=== PATIENT | male | born 1980 ===

== ENCOUNTER 2017-06-11 18:42 | Emergency (ER) | payer MEDICAID, OTHER ==
[2017-06-11 18:42] VITALS: BMI 25.0
--- NOTE | 2017-06-11 19:28 | ED PDOC ---
Upper Extremity Pain/Injury Time Seen by Provider: 06/11/17 19:14 Chief Complaint (Nursing): Finger,Hand,&Wrist Chief Complaint (Provider): right arm pain History Per: Patient History/Exam Limitations: no limitations Onset/Duration Of Symptoms: Days (1 week) Current Symptoms Are (Timing): Still Present Hands/Wrist (Pic): 1 - Tenderness, Swelling, Pain Worse W/Movement 2 - Tenderness, Pain Worse W/Movement Exacerbating Factor(s): Strenuous Use Of Affected Area Additional History Per: Patient Additional Complaint(s): 37 y/o male presents with right arm/wrist pain x 1 week. 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 Patient states pain is worsened by movement, and feels area to be swollen. Pain also noted to right wrist with certain movements. Patient iced area once, and has not taken any medication for pain thus far. Denies numbness/weakness right upper extremity. Past Medical History Reviewed: Historical Data, Nursing Documentation, Vital Signs Vital Signs: Last Vital Signs Temp 98.5 F 06/11/17 19:01 Pulse 78 06/11/17 19:01 Resp 16 06/11/17 19:01 BP 106/66 06/11/17 19:01 Pulse Ox 100 06/11/17 19:01 - Medical History PMH: Kidney Stones, Chronic Kidney Disease Denies: Diabetes, Hepatitis, HIV, HTN, Seizures, Sexually Transmitted Disease - Family History Family History: States: Unknown Family Hx - Immunization History Hx Tetanus Toxoid Vaccination: No Hx Influenza Vaccination: No Hx Pneumococcal Vaccination: No - Home Medications Home Medications: Ambulatory Orders Medication Instructions Recorded Docusate Sodium [Colace] 100 mg PO TID #30 capsule 10/16/16 Hydrocortisone [Anusol-HC] 25 mg RC BID #20 sup 10/16/16 Ibuprofen [Motrin Tab] 1 tab PO Q6 PRN #20 tab 06/11/17 - Allergies Allergies/Adverse Reactions: Allergies Allergy/AdvReac Type Severity Reaction Status Date / Time No Known Allergies Allergy Verified 06/11/17 19:01 Review of Systems ROS Statement: Except As Marked, All Systems Reviewed And Found Negative Musculoskeletal: Positive for: Arm Pain (right forearm, right wrist) Physical Exam - Reviewed Nursing Documentation Reviewed: Yes Vital Signs Reviewed: Yes - Physical Exam Appears: Positive for: Well, Non-toxic, No Acute Distress Head Exam: Positive for: ATRAUMATIC, NORMAL INSPECTION, NORMOCEPHALIC Pulses-Radial (L): 2+ Pulses-Radial (R): 2+ Extremity: Positive for: Normal ROM (pain distal radial forearm with ulnar deviation right wrist. pain radial aspect right wrist with flexion; Distal NV, motor intact), Tenderness (distal forearm radial aspect tender to palpate with localized swelling. No eryhema, temp change noted) - ECG O2 Sat by Pulse Oximetry: 100 - Other Rad xray right wrist X-Ray: Viewed By Me X-Ray Interpretation: no acute findings xray right forearm X-Ray: Viewed By Me, Read By Radiologist X-Ray Interpretation: no acute findings - Progress ED Course And Treament: xray's, ibuprofen Patient educated on findings, wrist immobilizer given for comfort. Advised RICE. Rx ibuprofen given. Follow up ortho for persistent symptoms. Return to ED for worsening/concerning symptoms. Disposition - Clinical Impression Clinical Impression: Injury of forearm and wrist - Patient ED Disposition Is Patient to be Admitted: No Counseled Patient/Family Regarding: Studies Performed, Diagnosis, Need For Followup, Rx Given - Disposition Referrals: Jason Courtney III, MD [Staff Provider] - Disposition: Routine/Home Disposition Time: 21:19 Condition: IMPROVED Prescriptions: Ibuprofen [Motrin Tab] 1 tab PO Q6 PRN #20 tab PRN Reason: Pain, Moderate (4-7) Instructions: Common Wrist Injuries Forms: [employer] ([place])
--- NOTE | 2017-06-11 21:00 | RAD ---
EXAM: XR Right Forearm, 2 Views CLINICAL HISTORY: 37 years old, male; Injury or trauma; Fall; Initial encounter; Blunt trauma (contusions or hematomas; Arm, lower; Right; Additional info: Injury, distal pain TECHNIQUE: Frontal and lateral views of the right forearm. COMPARISON: No relevant prior studies available. FINDINGS: Bones/joints: No acute fracture. 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 No dislocation. Soft tissues: Unremarkable. IMPRESSION: 1. No acute fracture. 2. Incidental/non-acute findings are described above.
[2017-06-11 21:43] VITALS: BP 111/76; PULSE 81; RESP 17; TEMP 98.3; O2SAT 99
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
== END 2017-06-11 21:36 | disposition home or self-care (01) ==
LOC: H.ER 18:42
DX: S69.91XA Unspecified injury of right wrist, hand and finger(s), initial encounter (principal); X50.3XXA Overexertion from repetitive movements, initial encounter; Y99.0 Civilian activity done for income or pay

== ENCOUNTER 2017-06-30 19:51 | Emergency (ER) | payer MEDICAID ==
[2017-06-30 19:51] VITALS: BMI 25.0
[2017-06-30 20:03] VITALS: BP 150/95; PULSE 86; RESP 18; TEMP 99.2; O2SAT 97
--- NOTE | 2017-06-30 20:44 | ED PDOC ---
HPI: General Adult Time Seen by Provider: 06/30/17 20:17 Chief Complaint (Nursing): Dizziness/Lightheaded Chief Complaint (Provider): Tired History Per: Patient History/Exam Limitations: no limitations Have you had recent travel within the past 21 days to any of the following countries: [place], [place], [place] or [place]?: No Current Symptoms Are (Timing): Better Additional Complaint(s): 37 yo male with no medical problems presents with feeling tired the last few hours. PT states the worked 60 hours this week and instead of sleeping he wanted to take a side job for extra money. Pt states after that he went to the gym for 4 hours and went to the store. Pt states in the store he felt so tired. Pt denies SI/HI. Pt reports smoking PCP 2times per week and smoking marijuana the other days. Past Medical History Reviewed: Historical Data, Nursing Documentation, Vital Signs Vital Signs: Last Vital Signs Temp 99.2 F 06/30/17 19:59 Pulse 86 06/30/17 19:59 Resp 18 06/30/17 19:59 BP 150/95 H 06/30/17 19:59 Pulse Ox 97 06/30/17 19:59 - Medical History PMH: Kidney Stones Denies: Diabetes, Hepatitis, HIV, HTN, Chronic Kidney Disease, Seizures, Sexually Transmitted Disease - Surgical History Surgical History: No Surg Hx - Family History Family History: States: Unknown Family Hx - Living Arrangements Living Arrangements: With Family - Social History Current smoker - smoking cessation education provided: Yes Alcohol: Occasional Drugs: Cannabis, Other - Immunization History Hx Tetanus Toxoid Vaccination: No Hx Influenza Vaccination: No Hx Pneumococcal Vaccination: No - Home Medications Home Medications: Ambulatory Orders Medication Instructions Recorded Docusate Sodium [Colace] 100 mg PO TID #30 capsule 10/16/16 Hydrocortisone [Anusol-HC] 25 mg RC BID #20 sup 10/16/16 Ibuprofen [Motrin Tab] 1 tab PO Q6 PRN #20 tab 06/11/17 - Allergies Allergies/Adverse Reactions: Allergies Allergy/AdvReac Type Severity Reaction Status Date / Time No Known Allergies Allergy Verified 06/11/17 19:01 Review of Systems ROS Statement: Except As Marked, All Systems Reviewed And Found Negative Neurological: Positive for: Weakness Physical Exam - Reviewed Nursing Documentation Reviewed: Yes Vital Signs Reviewed: Yes - Physical Exam Appears: Positive for: Well, Non-toxic, No Acute Distress Head Exam: Positive for: ATRAUMATIC, NORMAL INSPECTION, NORMOCEPHALIC Skin: Positive for: Normal Color, Warm, DRY Eye Exam: Positive for: EOMI, Normal appearance, PERRL ENT: Positive for: Normal ENT Inspection Neck: Positive for: Normal, Painless ROM Cardiovascular/Chest: Positive for: Regular Rate, Rhythm Respiratory: Positive for: CNT, Normal Breath Sounds Gastrointestinal/Abdominal: Positive for: Normal Exam, Bowel Sounds, Soft. Negative for: Tenderness Back: Positive for: Normal Inspection Extremity: Positive for: Normal ROM Neurologic/Psych: Positive for: Alert, Oriented - ECG O2 Sat by Pulse Oximetry: 97 Medical Decision Making Medical Decision Making: Discussed taking vitamins, sleeping 8 hours a night, stop drug use and eating healthy. Pt than asks for medications to keep him up during the days "like a stimulant". After I tell him he would need to see his PMD/psychiatrist patient than asks if he could have multiple Rx for pain medication, sleeping pills or "special vitamins". Disposition - Clinical Impression Clinical Impression: Tired - Patient ED Disposition Is Patient to be Admitted: No Counseled Patient/Family Regarding: Diagnosis, Need For Followup - Disposition Disposition: Routine/Home Disposition Time: 20:42 Condition: GOOD Instructions: Fatigue (DC)
== END 2017-06-30 20:53 | disposition home or self-care (01) ==
LOC: H.ER 19:51
DX: R53.83 Other fatigue (principal); Z87.442 Personal history of urinary calculi; Z72.0 Tobacco use

== ENCOUNTER 2017-07-07 21:05 | Emergency (ER) | payer MEDICAID ==
[2017-07-07 21:05] VITALS: BMI 25.0
[2017-07-07 21:41] VITALS: BP 128/83; PULSE 98; RESP 18; TEMP 98.8; O2SAT 100
[2017-07-07] MEDS ORDERED: Albuterol-Ipratrop 3 mg / 0.5 (3 ml) UD INH STA (22:05)
[2017-07-07] MEDS ORDERED: Albuterol-Ipratrop 3 mg / 0.5 (3 ml) UD ONE (22:13)
[2017-07-07 22:35] LABS: BASO # 0.1 K/uL (0.0-0.2); BASO % 0.9 % (0.0-2.0); EOS # 0.2 K/uL (0.0-0.7); EOS % 2.3 % (0.0-4.0); HEMOGLOBIN 15.6 g/dL (12.0-18.0); LYMPH # 2.4 K/uL (1.0-4.3); LYMPH % 32.3 % (20.0-40.0); MEAN CORPUSCULAR HEMOGLOBIN 32.1 pg (27.0-31.0); MEAN CORPUSCULAR HGB CONC 34.6 g/dL (33.0-37.0); MEAN PLATELET VOLUME 8.8 fl (7.2-11.7); MONO # 0.5 K/uL (0.0-0.8); MONO % 6.7 % (0.0-10.0); NEUT # 4.2 K/uL (1.8-7.0); NEUT % 57.8 % (50.0-75.0); NRBC % 0.1 % (0.0-0.0); RBC 4.86 Mil/uL (4.40-5.90); RED CELL DISTRIBUTION WIDTH 12.9 % (11.5-14.5); WHITE BLOOD COUNT 7.3 K/uL (4.8-10.8)
[2017-07-07 22:44] LABS: BLOOD UREA NITROGEN 15 mg/dl (9-20); CALCIUM 9.5 mg/dL (8.4-10.2); GFR AFRICAN-AMERICAN > 60; GFR NON-AFRICAN AMERICAN > 60
--- NOTE | 2017-07-07 22:58 | ED PDOC ---
HPI: SOB/CHF/COPD Time Seen by Provider: 07/07/17 21:43 Chief Complaint (Nursing): Respiratory Distress Chief Complaint (Provider): Cough and Shortness of Breath History Per: Patient History/Exam Limitations: no limitations Onset/Duration Of Symptoms: Days Current Symptoms Are (Timing): Still Present Associated Symptoms: denies: Chest Pain Additional Complaint(s): 37 year old male presents to the emergency department to be evaluated for cough and shortness of breath. Patient also notes some dryness in his throat as well as chest tightness. Denies nausea, vomiting, diaphoresis. 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 Past Medical History Reviewed: Historical Data, Nursing Documentation, Vital Signs Vital Signs: Last Vital Signs Temp 98.8 F 07/07/17 21:36 Pulse 98 H 07/07/17 21:36 Resp 18 07/07/17 21:36 BP 128/83 07/07/17 21:36 Pulse Ox 100 07/07/17 23:41 - Medical History PMH: Kidney Stones Denies: Diabetes, Hepatitis, HIV, HTN, Chronic Kidney Disease, Seizures, Sexually Transmitted Disease - Surgical History Surgical History: No Surg Hx - Family History Family History: States: Unknown Family Hx - Social History Current smoker - smoking cessation education provided: Yes (2 cigarettes daily) Ex-Smoker (has not smoked in the last 12 months): Yes Drugs: Other (PCP) - Immunization History Hx Tetanus Toxoid Vaccination: No Hx Influenza Vaccination: No Hx Pneumococcal Vaccination: No - Home Medications Home Medications: Ambulatory Orders Medication Instructions Recorded Docusate Sodium [Colace] 100 mg PO TID #30 capsule 10/16/16 Hydrocortisone [Anusol-HC] 25 mg RC BID #20 sup 10/16/16 Ibuprofen [Motrin Tab] 1 tab PO Q6 PRN #20 tab 06/11/17 - Allergies Allergies/Adverse Reactions: Allergies Allergy/AdvReac Type Severity Reaction Status Date / Time No Known Allergies Allergy Verified 06/11/17 19:01 Review of Systems ROS Statement: Except As Marked, All Systems Reviewed And Found Negative Cardiovascular: Negative for: Chest Pain (Chest tightness) Respiratory: Positive for: Cough, Shortness of Breath Gastrointestinal: Negative for: Nausea, Vomiting Physical Exam - Reviewed Nursing Documentation Reviewed: Yes Vital Signs Reviewed: Yes - Physical Exam Appears: Positive for: Non-toxic, No Acute Distress Head Exam: Positive for: ATRAUMATIC, NORMAL INSPECTION, NORMOCEPHALIC Skin: Positive for: Normal Color, Warm, Dry. Negative for: Rash Eye Exam: Positive for: Normal appearance, PERRL. Negative for: EOMI, Nystagmus ENT: Positive for: Normal ENT Inspection. Negative for: Nasal Congestion, Tonsillar Exudate, Tonsillar Swelling Neck: Positive for: Normal, Painless ROM, Supple Cardiovascular/Chest: Positive for: Regular Rate, Rhythm, Chest Non Tender. Negative for: Tachycardia Respiratory: Positive for: Normal Breath Sounds. Negative for: Rales, Rhonchi, Wheezing, Respiratory Distress Gastrointestinal/Abdominal: Positive for: Normal Exam, Bowel Sounds, Soft. Negative for: Tenderness, Mass, Guarding, Rebound Back: Positive for: Normal Inspection. Negative for: L CVA Tenderness, R CVA Tenderness Extremity: Positive for: Normal ROM. Negative for: Tenderness, Deformity, Swelling Neurologic/Psych: Positive for: Alert, Oriented, Gait - Laboratory Results Result Diagrams: 07/07/17 22:15 07/07/17 22:15 - ECG O2 Sat by Pulse Oximetry: 100 (RA) Pulse Ox Interpretation: Normal - Radiology X-Ray: Interpreted by Me, Viewed By Ne X-Ray Interpretation: No Acute Disease Medical Decision Making Medical Decision Makin Initial Impression 37 year old male presenting with non specific shortness of breath Initial Plan: * EKG * Alcohol serum * BMP * Drug Screen * CBC * CXR * Albuterol 3mL INH * Peak Flow Pre/Post * Reevaluation 2108 EKG performed : Sinus tachycardia at 109 bpm with PVC and LVT Labs reviewed show no clinically significant abnormalities Chest Xray NAD Patient is stable for discharge home Dx PCP Abuse Patient provided referral to [facility] and counseled against further usage of PCP or other illicit substances as well as cigarettes - Documented by Arabella Victor acting as a scribe for Sreedhar Leos MD. All medical record entries made by the Scribe were at my direction and personally dictated by me. I have reviewed the chart and agree that the record accurately reflects my personal performance of the history, physical exam, medical decision making, and the department course for this patient. I have also personally directed, reviewed, and agree with the discharge instructions and disposition. Disposition - Clinical Impression Clinical Impression: PCP (phencyclidine) abuse - Disposition Referrals: [facility] [Outside] [facility] [Outside] Disposition Time: 23:00 Condition: STABLE Instructions: Drug Abuse and Drug Addiction (DC) Forms: [employer] (Uzbek)
[2017-07-07 23:42] LABS: BARBITURATES, UR NEGATIVE (NEGATIVE); BENZODIAZEPINES, UR NEGATIVE (NEGATIVE); OPIATES, UR NEGATIVE (NEGATIVE); PHENCYCLIDINE, UR POSITIVE (NEGATIVE)
--- NOTE | 2017-07-08 09:00 | RAD ---
HISTORY: SOB COMPARISON: Chest radiographs 04/01/2008. TECHNIQUE: Chest PA and lateral FINDINGS: LUNGS: No active pulmonary disease. PLEURA: No significant pleural effusion identified. No pneumothorax apparent. CARDIOVASCULAR: Normal. OSSEOUS STRUCTURES: No significant abnormalities. VISUALIZED UPPER ABDOMEN: Normal. OTHER FINDINGS: None. IMPRESSION: No interval acute cardiopulmonary disease appreciated.
--- NOTE | 2017-07-09 | CARD ---
APPROVED REPORT EKG Measurement Heart [id number] <Conclusion> Sinus tachycardia with frequent premature ventricular complexes Moderate voltage criteria for LVH, may be normal variant Borderline ECG
== END 2017-07-07 23:39 | disposition home or self-care (01) ==
LOC: H.ER 21:05
DX: F16.10 Hallucinogen abuse, uncomplicated (principal)

== ENCOUNTER 2017-07-13 00:54 | Emergency (ER) | payer MEDICAID ==
[2017-07-13 00:54] VITALS: BMI 25.0
[2017-07-13 01:00] VITALS: BP 145/92; PULSE 91; RESP 18; TEMP 99.1; O2SAT 100
[2017-07-13] MEDS ORDERED: Tdap Vaccine 0.5 ml Vial (10-64 yrs) IM ONE (01:28)
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
== END 2017-07-13 02:43 | disposition home or self-care (01) ==
LOC: H.ER 00:54
DX: S09.90XA Unspecified injury of head, initial encounter (principal); S00.83XA Contusion of other part of head, initial encounter; F17.200 Nicotine dependence, unspecified, uncomplicated; Z87.442 Personal history of urinary calculi; W19.XXXA Unspecified fall, initial encounter; Z23 Encounter for immunization

== ENCOUNTER 2017-07-22 17:02 | Emergency (ER) | payer MEDICAID ==
[2017-07-22 17:02] VITALS: BMI 25.0
[2017-07-22 17:53] VITALS: BP 141/76; PULSE 101; RESP 16; TEMP 99.4; O2SAT 98
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
--- NOTE | 2017-07-23 10:29 | CT ---
PROCEDURE: CT MAXILLOFACIAL BONES WITHOUT CONTRAST HISTORY: r/o fx COMPARISON: 07/13/[address] TECHNIQUE: Contiguous axial CT images of the maxillofacial bones were obtained. Coronal and sagittal reformats were generated. Radiation dose: Total exam DLP = and print 1 mGy-cm. This CT exam was performed using one or more of the following dose reduction techniques: Automated exposure control, adjustment of the mA and/or kV according to patient size, and/or use of iterative reconstruction technique. FINDINGS: NASAL BONES: Unremarkable. ORBITS: Unremarkable. PARANASAL SINUSES/ MASTOIDS: No evidence of acute sinusitis. Chronic ethmoid air cell disease. Mucous retention cyst right maxillary sinus. MAXILLA: Unremarkable. MANDIBLE/ TEMPOROMANDIBULAR JOINTS: Unremarkable. SKULL BASE: Unremarkable. TEMPORAL BONES: Middle ears and mastoid grossly unremarkable. OTHER FINDINGS: None. IMPRESSION: No significant or acute findings to account for/ related to the clinical presentation. No significant interval change compared to the prior examination(s). Additional benign and/or incidental findings described above. Concordant results (preliminary interpretation) provided by [employer]. Procedure Completed: 20:36 Preliminary ([facility]) Report: Dictated and Authenticated: 21:07 Final Interpretation: 10:27. July 23, 2017.
== END 2017-07-22 22:09 | disposition home or self-care (01) ==
LOC: H.ER 17:02
DX: R68.84 Jaw pain (principal)